=== PATIENT | male | born 1995 | race Caucasian/White ===

== ENCOUNTER 2017-09-05 20:23 | Emergency (ER) | payer OTHER, SELFPAY | END 2017-09-05 20:45 | disposition left against medical advice (07) | LOC: ED 21:56 | PROVIDERS: Emergency Provider Emergency Medicine | DX: Z04.1 Encounter for examination and observation following transport accident (principal) ==

== ENCOUNTER 2022-12-04 09:14 | Emergency (ER) | payer OTHER, SELFPAY ==
[2022-12-04 09:15] VITALS: BP 137/101; PULSE 86; RESP 18; TEMP 36.1; O2SAT 98; BMI 34.3
--- NOTE | 2022-12-04 10:29 | EDS_ITS ---
HPI History of Present Illness Chief Complaint: Dental Detail of Chief Complaint: Dental pain and concern for infection. Informant: patient Onset/Context/Timing Onset: Days Context: Gradual Onset Timing: Continuous Current Severity: Mild Maximum Severity: Mild Associated Symptoms Assocated Symptom - Dental: Negative for fever, jaw swelling or face swelling Narrative Narrative: 27-year-old male history of hypertension currently on no medications. States he had dental pain and swelling of his lower right gums for the last several days. Denies any fever. No trouble swallowing or breathing. Prior similar symptoms: Yes Recent Illness/Hospitalization: No PFSH PFSH Home Medications No Known/Unobtainable [No Known Home Medications] 03/27/17 [History Last Taken Unknown] penicillin V potassium 500 mg tablet 500 mg PO 4X/DAY #40 tabs 12/04/22 [Rx Last Taken Unknown] Allergy/AdvReac Type Severity Reaction Status Date / Time No Known Allergies Allergy Verified 03/27/17 17:21 Social History Smoking Status: Current every day smoker ROS ROS ED ROS Narrative Dental pain. Review of Systems ROS Unobtainable: Denies due to encephalopathy Constitutional Constitutional ED: Denies chills or fever(s) Eyes Eyes: Denies blurry vision ENT ENT ED: Denies ear pain Cardiovascular Cardiovascular: Denies chest pain Respiratory/Chest Respiratory/Chest: Denies cough or dyspnea Gastrointestinal Gastrointestinal: Denies abdominal pain Genitourinary Genitourinary ED: Denies dysuria or hematuria Musculoskeletal Musculoskeletal: Denies arthralgias Integumentary Denies abscess or Abrasions Neurologic Neurologic: Denies headache(s) Psychiatric Psychiatric: Denies anxiety or depression Endocrine Endocrinology: Denies cold intolerance Hematologic/Lymphatic Hematologic/Lymphatic: Denies easy bleeding Allergic/Immunologic Allergic/Immunologic ED: Denies mouth swelling EXAM Physical Exam Narrative Exam Narrative: Well-appearing 27-year-old male. Vital signs stable afebrile. Initial blood pressure 137/101. H EENT exam had some discolored teeth. Mild gingival inflammation to the front gums of his front lower teeth. No palpable abscess. Mild inflammation to the submental area underneath his chin. No Stefanie's angina. Posterior pharynx unremarkable. No trouble swallowing or breathing. Neck no lymphadenopathy. Lungs clear. Heart regular rhythm. Abdomen soft. Otherwise exam unremarkable. Const Vital Signs: 12/04/22 09:15 Temperature 96.9 F L Temperature Source Temporal Pulse Rate 86 Respiratory Rate 18 Blood Pressure 137/101 H Blood Pressure Mean 113 Pulse Ox 98 Oxygen Delivery Method Room Air Positive well nourished and well developed; Negative for cachectic, contractures or unkempt General Appearance ED: well developed and NAD; Negative for unkempt, cachectic or contractures Nutritional Appearance: Negative for cachectic HEENT HEENT Narrative: Mild swelling of the gums associated with the lower front teeth. No abscess. Negative for trauma or tenderness Face and Sinus: Negative for sinuses nontender Mouth ED: Yes lips normal, Yes tongue normal, Yes salivary gland normal, No mouth trauma, No oral and palatal mucosa abnormal and No salivary gland abnormal Mouth: lips normal, tongue normal, salivary gland normal, No mouth trauma, No oral and palatal mucosa abnormal and No salivary gland abnormal Teeth and Gingiva: abnormal tooth and associated gingiva, gingiva abnormal and teeth discoloration Throat: posterior oropharynx normal Eyes PERRL and EOMs intact bilaterally General Eye ED: Negative for pale conjunctiva or scleral icterus Visual Acuity: Negative for other Neck no lymphadenopathy, supple and no JVD General: normal visual inspection and tenderness; Negative for anterior neck swelling or submandibular swelling Lymph Lymphatic: no lymphadenopathy noted; Negative for lymphadenopathy Chest Wall inspection of chest normal and palpation of chest normal Resp normal respiratory effort, no retractions and clear to auscultation bilaterally Effort and Inspection: Negative for other Cardio regular rate, regular rhythm, S1 normal heart sound, S2 normal heart sound and no murmurs Palpation: Negative for palpable S3 Rate: Negative for bradycardia Rhythm: Negative for abnormal rhythm GI normal to inspection, nondistended, normoactive bowel sounds, non-tender, non- distended and no masses Inspection: Negative for other Palpation: Negative for soft Bladder / Kidney Exam: No other Back/Spine no CVA tenderness General Back: Negative for CVA tenderness Cervical Spine: Negative for other Extremity normal to inspection and no joint enlargement General Extremety ED: Negative for edema or other findings General Extremity: Negative for edema or other findings Neuro oriented x3, CN's II-XII intact bilaterally, moves all extremities and no focal motor deficits Sensorium / Orientation: alert, oriented to person, oriented to place and oriented to time; Negative for orientation impaired Motor Exam: strength 5/5 throughout Psych mental status grossly normal Appearance: Negative for unkempt Attitude: No agitated Mood & Affect: Negative for depressed, anxious or tearful Skin no rashes or lesions noted and no wounds General Skin Exam: Negative for other MDM MDM MDM Narrative Medical decision making narrative: 27-year-old male gingivitis. Will be placed on Pen-Vee K 500 4 times daily for 10 days. Follow-up with a dentist soon as possible. Motrin and Tylenol for pain. Gly-Oxide oral rinse. At this time there is nothing to drain. He does not need any labs. History & Record Review Discussion w/independent historian: Patient Discharge Plan Triage Chief Complaint: Dental ED Provider: Joseluis Nguyen Dx/Rx/DC Orders Clinical Impression: Gingivitis, Dental infection Instructions: ED Abscess Antibiotic Treatment Only, ED Dental Pain Prescriptions: New penicillin V potassium 500 mg tablet 500 mg PO 4X/DAY Qty: 40 0RF No Action No Known Home Medications Primary Care Provider: Care Physician,No Primary Referrals: Care Physician,No Primary [Primary Care Provider] - Activity Restrictions/Additional Instructions: Gly-Oxide mouth rinse 3-4 times a day. Motrin and Tylenol for pain Penicillin 1 pill 4 times a day till gone. Call and follow-up with a local dentist as soon as possible. Disposition Disposition: Home, Self Care
[2022-12-04] MEDS: Penicillin Vk 250 MG Tablet 500 MG PO (10:45)
== END 2022-12-04 10:47 | disposition home or self-care (01) ==
PROVIDERS: Emergency Provider Emergency Medicine; Visit Provider Emergency Medicine
DX: K05.00 Acute gingivitis, plaque induced (principal); F17.200 Nicotine dependence, unspecified, uncomplicated
CPT/HCPCS: 99282